=== PATIENT | male | born 1980 | race Caucasian/White ===

== ENCOUNTER 2017-01-22 06:33 | Observation (INO) ==
--- NOTE | 2017-01-22 07:13 | Emergency Department Note ---
Disposition Clinical Impression: Ventricular premature beats Chest pain Qualifiers: Chest pain type: other chest pain Qualified Code(s): R07.89 - Other chest pain Disposition: Admitted As Inpatient Condition: Fair Time of Disposition: 07:55 Arrhythmia/Palpitations HPI - General Chief Complaint: ED Arrhythmia/Palpitations Stated Complaint: heart racing Time Seen by Provider: 01/22/17 06:38 Source: patient, family Limitations: no limitations Nursing Notes Reviewed: Yes Vital Signs Reviewed: Yes - History of Present Illness HPI Narrative: 37-year-old male with a strong family history of breast factors include weight, hypertension, borderline diabetes he had some chest pain yesterday today he had what he described as palpitations. Patient is nonsmoker. Pt Subjective Complaint: "skipped beats", palpitations Onset (ago): Just [employer] Duration: intermittent Severity: moderate Context: occurred during rest, occurred during exertion Associated symptoms: Reports: chest pain Treatments prior to arrival: other (None) - Related Data Home Medications Medication Instructions Recorded Confirmed Lisinopril/Hydrochlorothiazide 1 tab PO DAILY 01/22/17 01/22/17 [Zestoretic 10-12.5 mg Tablet] Loratadine [Allergy Relief] 10 mg PO DAILY 01/22/17 01/22/17 Allergies Allergy/AdvReac Type Severity Reaction Status Date / Time No Known Allergies Allergy Verified 01/22/17 06:34 Constitutional: Denies: fever, chills, weakness, weight change Eyes: Denies: eye pain, eye discharge, vision change ENT ED: Denies: ear pain, throat pain, dental pain, hearing loss, epistaxis, congestion, dysphagia Cardiovascular: Reports: chest pain, palpitations. Denies: dyspnea on exertion , edema, syncope Respiratory: Denies: cough, dyspnea, wheezes, hemoptysis, stridor Gastrointestinal: Denies: abdominal pain, nausea, vomiting, diarrhea, constipation, hematemesis, melena, hematochezia Genitourinary: Denies: urgency, dysuria, frequency, hematuria Musculoskeletal: Denies: back pain, neck pain, arthralgia, myalgia Integumentary: Denies: rash, abrasion, lesions Neurological: Denies: headache, weakness, numbness, paresthesias, confusion, abnormal gait, vertigo Psychiatric: Denies: anxiety, depression, suicidal thoughts, homicidal thoughts , auditory hallucinations, visual hallucinations Endocrine: Denies: fatigue Hematological/Lymphatic: Denies: easy bleeding, easy bruising Allergic/Immunologic: Denies: facial swelling, urticaria Past Medical History - Past Medical History Medical history: Reports: hypertension Psychiatric history: Reports: no psych history - Social History Smoking Status: Never smoker Smokeless Tobacco Status: No Alcohol use: Reports: rarely Drug use: Reports: none Physical Exam - General Limitations: no limitations General appearance: alert, in no apparent distress - Head Head exam: atraumatic, normocephalic, normal inspection - Eye Eye exam: Present: normal appearance, PERRL, EOMI - ENT ENT exam: normal exam, normal oropharynx, mucous membranes moist - Neck Neck exam: Present: normal inspection, full ROM, trachea midline - Chest Chest inspection: Present: normal inspection, symmetric chest wall rise - Respiratory Respiratory exam: Present: normal lung sounds bilaterally - Cardiovascular Cardiovascular exam: Present: regular rate, normal rhythm, normal heart sounds - Abdominal Exam Abdominal exam: Present: soft, Non-Tender. Absent: tenderness, distention, guarding, rebound, rigidity - Extremities Exam Extremities exam: Present: normal inspection, full ROM. Absent: tenderness, pedal edema - Expanded Lower Extremity Exam Neurovascular/Tendon exam: Absent: motor deficit, sensory deficit, tendon deficit Gait: observed and normal - Back Exam Back exam: Present: normal inspection, full ROM. Absent: tenderness - Neurological Exam Neurological exam: Present: alert, oriented X3 - Psychiatric Psychiatric exam: Present: normal affect, normal mood - Skin Skin exam: Present: warm, dry, intact, normal color Course - Reevaluation(s) Reevaluation #1: 37-year-old multiple risk factors comes in complaining of chest pain and trigeminy on his EKG. Initial bone and is negative. In light of his risk factors and complaints with EKG findings were going to admit him to rule out ME. Time: 07:54 - Consultations Consultation #1: Discussed with , admit. Time: 07:54 Vital Signs Temperature 97.7 F 01/22/17 06:34 Pulse Rate 87 01/22/17 06:34 Respiratory Rate 20 01/22/17 06:34 Blood Pressure 150/86 01/22/17 06:34 O2 Sat by Pulse Oximetry 97 01/22/17 06:34 Temperature 97.8 F 01/22/17 15:41 Pulse Rate 73 03/18/17 15:41 Respiratory Rate 16 01/22/17 15:41 Blood Pressure 125/64 01/22/17 15:41 O2 Sat by Pulse Oximetry 90 L 01/22/17 15:41 Oxygen Delivery Oxygen Delivery Room Air Arrhythmia/Palpitations - Lab Data Lab results reviewed: Yes I reviewed the patient's lab results. Result diagrams: 01/22/17 07:00 01/22/17 07:00 Lab Results 01/22/17 01/22/17 01/22/17 Range/Units 07:00 07:00 07:00 WBC 11.2 H (4.3-11.1) K/mcL RBC 5.49 (4.19-5.50) M/mcL Hgb 14.9 (12.9-16.9) g/dL Hct 45.9 (37.5-50.1) % MCV 83.6 (83.0-100.0) fL MCH 27.1 L (28.0-33.3) pg MCHC 32.5 (31.6-35.5) g/dL RDW 14.8 H (11.5-14.5) % Plt Count 326 (140-400) K/mcL MPV 8.7 L (9.4-12.4) fL Immature Gran % 0.4 (0-4) % Seg Neutrophils % 62.3 % Lymphocytes % 25.1 % Monocytes % 6.3 % Eosinophils % 5.5 % Basophils % 0.4 % Neutrophils # 7.0 (1.6-8.9) K/mcL Lymphocytes # 2.8 (0.6-4.6) K/mcL Monocytes # 0.7 (0.0-1.3) K/mcL Eosinophils # 0.6 (0.0-0.6) K/mcL Basophils # 0.1 (0.0-0.2) K/mcL Sodium 139 (136-145) mEq/L Potassium 4.2 (3.5-4.5) mEq/L Chloride 104 (98-109) mEq/L Carbon Dioxide 25 (19-29) mEq/L BUN 11 (8-26) mg/dL Creatinine 0.82 (0.72-1.25) mg/dL Est GFR ( Amer) > 60 (> 60) Est GFR (Non-Af Amer) > 60 (> 60) BUN/Creatinine Ratio 13 (6-26) Glucose 133 H (70-99) mg/dL Est Mean Plasma Glucose mg/dl Hemoglobin A1c ( - 5.6) % Calculated Osmolality 289 (280-300) Calcium 8.8 (8.6-10.8) mg/dL Phosphorus 3.0 (2.3-4.7) mg/dL Magnesium 1.7 (1.6-2.6) mg/dL Troponin I 0.00 (0-0.03) ng/mL TSH 2.440 (0.350-4.840) mcIU/mL 01/22/17 Range/Units 07:00 WBC (4.3-11.1) K/mcL RBC (4.19-5.50) M/mcL Hgb (12.9-16.9) g/dL Hct (37.5-50.1) % MCV (83.0-100.0) fL MCH (28.0-33.3) pg MCHC (31.6-35.5) g/dL RDW (11.5-14.5) % Plt Count (140-400) K/mcL MPV (9.4-12.4) fL Immature Gran % (0-4) % Seg Neutrophils % % Lymphocytes % % Monocytes % % Eosinophils % % Basophils % % Neutrophils # (1.6-8.9) K/mcL Lymphocytes # (0.6-4.6) K/mcL Monocytes # (0.0-1.3) K/mcL Eosinophils # (0.0-0.6) K/mcL Basophils # (0.0-0.2) K/mcL Sodium (136-145) mEq/L Potassium (3.5-4.5) mEq/L Chloride (98-109) mEq/L Carbon Dioxide (19-29) mEq/L BUN (8-26) mg/dL Creatinine (0.72-1.25) mg/dL Est GFR ( Amer) (> 60) Est GFR (Non-Af Amer) (> 60) BUN/Creatinine Ratio (6-26) Glucose (70-99) mg/dL Est Mean Plasma Glucose 126 mg/dl Hemoglobin A1c 6.0 H ( - 5.6) % Calculated Osmolality (280-300) Calcium (8.6-10.8) mg/dL Phosphorus (2.3-4.7) mg/dL Magnesium (1.6-2.6) mg/dL Troponin I (0-0.03) ng/mL TSH (0.350-4.840) mcIU/mL - Radiology Data Radiology results reviewed: Yes I reviewed the patient's radiology results. Chest X-Ray 01/22/17 06:38 IMPRESSION: Negative portable chest. D/ / Steven Urbano MD / Steven Urbano MD Interpreting Provider: Steven Urbano MD - EKG Data EKG attestation: Yes I reviewed and interpreted this EKG. Rhythm: PVC's Ronan/QRS: IVCD Interpretation: no acute changes
[2017-01-22 07:18] LABS: Basophils # 0.1 K/mcL (0.0-0.2); Basophils % 0.4 %; Eosinophils # 0.6 K/mcL (0.0-0.6); Eosinophils % 5.5 %; Hematocrit 45.9 % (37.5-50.1); Hemoglobin 14.9 g/dL (12.9-16.9); Immature Granulocytes % 0.4 % (0-4); Lymphocytes # 2.8 K/mcL (0.6-4.6); Lymphocytes % 25.1 %; Mean Corpuscular HGB Conc 32.5 g/dL (31.6-35.5); Mean Corpuscular Hemoglobin 27.1 pg (28.0-33.3); Mean Corpuscular Volume 83.6 fL (83.0-100.0); Mean Platelet Volume 8.7 fL (9.4-12.4); Monocytes # 0.7 K/mcL (0.0-1.3); Monocytes % 6.3 %; Platelet Count 326 K/mcL (140-400); Red Blood Count 5.49 M/mcL (4.19-5.50); Red Cell Distribution Width 14.8 % (11.5-14.5); Segmented Neutrophils % 62.3 %
[2017-01-22 07:25] LABS: BUN/Creatinine Ratio 13 (6-26); Blood Urea Nitrogen 11 mg/dL (8-26); Calcium 8.8 mg/dL (8.6-10.8); Carbon Dioxide 25 mEq/L (19-29); Chloride 104 mEq/L (98-109); Glucose 133 mg/dL (70-99); Osmolality,Calculated 289 (280-300); Potassium 4.2 mEq/L (3.5-4.5); Sodium 139 mEq/L (136-145); eGFR For African Americans > 60 (> 60); eGFR For Non-African Americans > 60 (> 60)
[2017-01-22] MEDS ORDERED: Aspirin 81 MG TAB.CHEW PO STA (07:49)
[2017-01-22 08:08] LABS: Magnesium 1.7 mg/dL (1.6-2.6)
--- NOTE | 2017-01-22 09:16 | Internal Med History&Physical ---
Date of Encounter: 01/22/17 Time of Encounter: 09:00 Assessment and Plan (1) Chest pain Current visit: Yes Status: Acute Chest pain with risk factors for coronary artery disease. Will observe in the hospital overnight. Trend troponins. Monitor with telemetry. Plan for cardiac stress test tomorrow. Qualifiers: Chest pain type: other chest pain Qualified Code(s): R07.89 - Other chest pain; R07.8 - Other chest pain (2) Ventricular premature beats Current visit: Yes Status: Acute Patient having palpitations with PVCs noted on EKG. Will get 2-D echocardiogram. Monitor with telemetry. Check magnesium, phosphorus and other vitamins. TSH level was normal. (3) Essential hypertension Current visit: Yes Status: Chronic Monitor blood pressure. Resume lisinopril. Internal Medicine - H&P: HPI Chief complaint: Chest pain Admitted From: Emergency Dept Plans for Post Hospital Care: Home History of present illness: Mr. Vail is a 37 year old male with history of essential hypertension came to the ER with complaints of palpitations. His symptoms have been going on for about 2 days now. He had an episode of upper respiratory tract infection last month. Otherwise he has been pretty healthy. He does take lisinopril for hypertension. He was also noted to be borderline diabetic at his most recent doctor visit. He denies any fever or chills or night sweats. He may drink a cup of coffee and couple soda every day but does not take any energy drinks. He also reports some intermittent chest pain that comes and goes He also reports a mild intermittent chest pain associated with it that does not radiate anywhere. No associated shortness of breath. Past Med Surg Social Fam HX - Past Medical History Attestation: Yes The following information was validated with the patient. Medical history: hypertension Psychiatric history: no psych history - Social History Smoking Status: Never smoker Smokeless Tobacco Status: No Alcohol use: rarely Drug use: none - Additional Family History Additional family history: History of diabetes and hypertension in family Internal Medicine - H&P: Meds Allergies No Known Allergies Allergy (Verified 01/22/17 06:34) All Systems PM: A 10-system review of systems was performed and is negative for pertinent findings except as documented above in the HPI. - Constitutional Constitutional: no chills, no fever(s), no night sweats - EENT Eyes: no change in vision, no discharge, no pain, no photophobia Ears: no ear discharge, no ear pain, no tinnitus Nose, mouth and throat: no dysphagia, no nasal discharge, no neck pain, no sore throat - Cardiovascular Cardiovascular ROS IM: palpitations, no chest pain, no diaphoresis, no dyspnea, no lightheadedness, no syncope - Respiratory Respiratory: no cough, no dyspnea, no wheezing, no excessive phlegm production - Gastrointestinal Gastrointestinal: no abdominal pain, no diarrhea, no hematemesis, no hematochezia, no melena, no nausea, no vomiting - Musculoskeletal Musculoskeletal ROS IM: no numbness, no tingling - Integumentary Integumentary IM: no rash, no unusual bruising - Neurological Neurological ROS: no confusion, no convulsions, no focal weakness, no numbness, no tingling, no tremor(s) - Hematologic/Lymphatic Hematologic/Lymphatic: no easy bruising - Constitutional Vitals: Temp Pulse Resp BP Pulse Ox 97.7 F 85 18 133/78 97 01/22/17 06:34 01/22/17 08:04 01/22/17 08:04 01/22/17 08:04 01/22/17 08:04 General appearance: Present: cooperative, A&O X 3, answers questions appropriately - Eye Eye exam: Present: EOMI, PERRL, conjuntiva pink, sclera anicteric - Neck Neck exam general surgery: Present: supple, trachea midline. Absent: lymphadenopathy - Respiratory Respiratory exam: Present: CTAB. Absent: accessory muscle use, rales, rhonchi, wheezes - Cardiovascular Cardiovascular exam: Present: RRR, +S1, +S2, tachycardia. Absent: diastolic murmur, gallop, rubs, systolic murmur - GI/Abdominal GI/Abdominal exam: Present: normal bowel sounds, soft, no peritoneal signs. Absent: distended, tenderness - Extremities Exam Extremities exam: Present: warm, radial pulses palpable and symetrical. Absent : calf tenderness, cyanotic, pedal edema - Neurological Exam Neurological exam: Present: alert, CN II-XII intact, oriented X3, no focal deficits, strengths equal and symetr throughout. Absent: facial droop, speech deficit - Skin Skin exam: Present: dry, intact Internal Med - H&P Results - Labs CBC & Chem 7: 01/22/17 07:00 01/22/17 07:00 - EKG Data EKG shows normal: sinus rhythm - EKG Data EKG comments: 01/22/17 09:17 With PVCs - Attending Attestation This document has been at least partially created by [employer] recognition technology by Dr. Linares. Errors in grammar, wording or other phrases may exist. If errors are found after the documentation is signed, they will be addressed individually in the addendum section of this document when appropriate.
[2017-01-22] MEDS ORDERED: Perflutren Lipid Microsphere 1.3 ML in 0.9 % Sodium Chloride 8.7 ML IVP ONE (19:22)
[2017-01-22] MEDS ORDERED: Perflutren Lipid Microsphere 2 ML VIAL ONE (19:24)
[2017-01-23] MEDS ORDERED: Regadenoson 0.4 MG/5 ML SYRINGE IVP ONE (06:06)
[2017-01-23 06:09] LABS: Basophils # 0.1 K/mcL (0.0-0.2); Basophils % 0.4 %; Eosinophils # 0.6 K/mcL (0.0-0.6); Eosinophils % 4.8 %; Hematocrit 41.2 % (37.5-50.1); Hemoglobin 13.4 g/dL (12.9-16.9); Immature Granulocytes % 0.3 % (0-4); Lymphocytes # 3.3 K/mcL (0.6-4.6); Lymphocytes % 28.4 %; Mean Corpuscular HGB Conc 32.5 g/dL (31.6-35.5); Mean Corpuscular Hemoglobin 27.6 pg (28.0-33.3); Mean Corpuscular Volume 84.9 fL (83.0-100.0); Mean Platelet Volume 9.2 fL (9.4-12.4); Monocytes # 0.7 K/mcL (0.0-1.3); Monocytes % 6.3 %; Neutrophils # 6.9 K/mcL (1.6-8.9); Platelet Count 289 K/mcL (140-400); Red Blood Count 4.85 M/mcL (4.19-5.50); Segmented Neutrophils % 59.8 %
[2017-01-23 06:20] LABS: BUN/Creatinine Ratio 14 (6-26); Blood Urea Nitrogen 11 mg/dL (8-26); Calcium 8.4 mg/dL (8.6-10.8); Carbon Dioxide 25 mEq/L (19-29); Chloride 104 mEq/L (98-109); Glucose 113 mg/dL (70-99); Osmolality,Calculated 288 (280-300); Potassium 4.1 mEq/L (3.5-4.5); Sodium 139 mEq/L (136-145); eGFR For African Americans > 60 (> 60); eGFR For Non-African Americans > 60 (> 60)
[2017-01-23 06:22] LABS: Chol/HDL Ratio 4.8 (0-4.9)
--- NOTE | 2017-01-23 10:52 | ECHO - Doppler Report ---
Echo with Imaging Enhancement Agent Name: Edwin Vail Date of Study: 01/22/2017 Date: 1980 Ht: 71.0 in Medical Record#: [id number] Age: 37 Wt: 385.0 lb Gender: Male BSA: 2.79 Order #: [id number] Location: [facility] Room #: 3B Reading Physician: Michelle Lyles DO Accounts Receivable Specialist: PETER VanT, [facility] Ordering Physician: Chelsea Linares MD Primary Physician: Zev Noguera DO Indications: Chest pain, Palpitations Impressions: Technically challenging study with suboptimal windows. LVEF 60%. Mild concentric left ventricular hypertrophy. Unable to evaluate segmental wall motion due to technical quality. RV is not well evaluated. Valves were not well evaluated by Doppler. Unable to estimate RVSP. Left Ventricular Wall Motion: Rest Echo Findings All wall segments showed normal motion. Findings: Study Quality * Technically sub-optimal due to body habitus. Left Ventricle * LVEF 60%. * Mild concentric left ventricular hypertrophy. * Indeterminate diastolic function. * Unable to evaluate segmental wall motion due to technical quality. * Definity echo contrast was used. Aortic Valve * No aortic regurgitation. * Aortic valve not well visualized. * Suboptimal Doppler evaluation. Mitral Valve * No mitral regurgitation. * Suboptimal Doppler evaluation. * Mitral valve not well visualized. ECG Findings * Normal sinus rhythm. Tricuspid Valve * Tricuspid valve not well visualized. * No tricuspid regurgitation although may be underestimated. Pulmonic Valve * Pulmonic valve is not well visualized. * No pulmonic stenosis. * No pulmonic regurgitation. Pulmonary Artery * Pulmonary artery not well visualized. Right Ventricle * RV not well evaluated. Left Atrium * Left atrium is not well visualized. Right Atrium * Right atrium is not well visualized. Interatrial Septum * Interatrial septum not well evaluated. IVC * The IVC is not well evaluated. Pericardium * There is no pericardial effusion present. Aorta * Not well visualized. History Hypertension Contrast: Definity 1.3 ml in 8.7 ml of saline 2 ml. Measurements: BP: 123/ 67 2D Normal Values IVSd: 1.30 cm 0.6 - 1.0 cm LVIDd: 4.30 cm 3.7 - 5.6 cm LVPWd: 1.30 cm 0.6 - 1.1 cm LVIDs: 3.00 cm 1.5 - 3.6 cm AO: 3.10 cm < 4.0 cm LA: 4.40 cm 2.0 - 4.0cm %FS: 30.20 cm >25 % LA volume: 40 Mitral Valve Dec Time:250.00 msec Peak E:.86 m/sec Peak A:.50 m/sec E/A Ratio:1.7 Peak E' Lat Sean:14.5 cm/s Peak E' Med Sean:7.66 cm/s E/E' Lat Ratio:6 E/E' Med Ratio:11.3 Updated by Michelle Lyles on 01/23/2017 10:45:01 AM electronically signed on 01/23/2017 10:46:32 AM with status of Final Wall Motion Hanley: 1=Normal, 2=Hypokinesis, 3=Akinesis, 4=Dyskinesis, 5=Aneurysmal, 6=Hyperkinetic, X=Not Visualized (Blank)=Missing
--- NOTE | 2017-01-23 11:52 | Internal Med Progress Note ---
Date of Encounter: 01/23/17 Time of Encounter: 11:52 - Assessment and plan (1) Chest pain Current Visit: Yes Status: Acute Assessment and plan: EKG with PVCs Trops negative ECHO noted for LVEF WNL, no WMA. Valvular funtion not well assessed due to technicality of study Awaiting second part of stress test tmrw Continue to monitor Qualifiers: Chest pain type: other chest pain Qualified Code(s): R07.89 - Other chest pain; R07.8 - Other chest pain (2) Pre-diabetes Current Visit: Yes Status: Acute Assessment and plan: A1C 6.0 Counselled on lifestyle modification (3) NURIA (obstructive sleep apnea) Current Visit: Yes Status: Suspected Assessment and plan: Suspected, based on history CPAP at night for now Educated to pursue sleep study as out-patient (4) Ventricular premature beats Current Visit: Yes Status: Acute Assessment and plan: NOn-specific, benign May be due to NURIA (5) Essential hypertension Current Visit: Yes Status: Chronic Assessment and plan: Resume home meds (6) Morbid obesity Current Visit: Yes Status: Acute Assessment and plan: Patient will benefit from Bariatric surgery, follow up with PCP Lifestyle changes encouraged Qualifiers: Obesity type: unspecified obesity type Qualified Code(s): E66.01 - Morbid ( severe) obesity due to excess calories (7) Leukocytosis Current Visit: Yes Status: Acute Assessment and plan: Possibly from dehydration Encourage liberal fluid intake Will give Z-pack for resp symptoms Qualifiers: Leukocytosis type: unspecified Qualified Code(s): D72.829 - Elevated white blood cell count, unspecified - Subjective Interval history: 37 Y/O M on admission for wor up for chest pain, URI and PVCs He is seen at bedside with spouse On further questioning reports NURIA symptoms He has never had sleep studies done He denies new complains - Constitutional Vitals: Temp Pulse Resp BP Pulse Ox 98.1 F 92 16 145/76 95 01/23/17 09:11 01/23/17 09:11 01/23/17 09:11 01/23/17 09:11 01/23/17 09:11 General appearance: Present: cooperative, A&O X 3, morbidly obese, pleasant, no acute distress, answers questions appropriately - Head Head exam: Present: atraumatic - Eye Eye exam: Present: PERRL, conjuntiva pink, sclera anicteric Pupils: Present: PERRL - Neck Neck exam general surgery: Present: supple, trachea midline. Absent: lymphadenopathy - Respiratory Respiratory exam: Present: CTAB. Absent: accessory muscle use, rales, rhonchi, wheezes - Cardiovascular Cardiovascular exam: Present: RRR, +S1, +S2. Absent: diastolic murmur, gallop, rubs, systolic murmur - GI/Abdominal GI/Abdominal exam: Present: normal bowel sounds, soft, no peritoneal signs. Absent: distended, tenderness - Extremities Exam Extremities exam: Present: warm, radial pulses palpable and symetrical. Absent : calf tenderness, cyanotic, pedal edema - Neurological Exam Neurological exam: Present: CN II-XII intact, oriented X3, no focal deficits. Absent: pronater drift, facial droop, speech deficit - Skin Skin exam: Present: dry, intact Internal Medicine: Result - Labs CBC & Chem 7: 01/23/17 04:28 01/23/17 04:28 Labs: Short CBC 01/23/17 Range/Units 04:28 WBC 11.6 H (4.3-11.1) K/mcL Hgb 13.4 D (12.9-16.9) g/dL Hct 41.2 (37.5-50.1) % Plt Count 289 (140-400) K/mcL Neutrophils # 6.9 (1.6-8.9) K/mcL BMP 01/23/17 04:28 Sodium 139 Potassium 4.1 Chloride 104 Carbon Dioxide 25 BUN 11 Creatinine 0.80 Glucose 113 H Calcium 8.4 L Cardiac Enzymes 01/22/17 01/22/17 Range/Units 13:49 20:02 Troponin I 0.00 0.00 (0-0.03) ng/mL Consult Discharge Plan - Plan Referrals: Zev Noguera DO [Primary Care Provider] -
--- NOTE | 2017-01-23 12:53 | Electrocardiograph Report ---
[place] [id number] Test Date: 2017-01-22 Pat Name: Edwin Vail Department: 104 Room: 3B38 Gender: M Service Desk Lead: : 1980 Requested By: Oleksandr Taylor Order Number: [id number] Reading MD: Michelle Lyles Measurements Intervals [place] Rate: 103 P: 48 GA: 154 QRS: -6 QRSD: 114 T: 30 QT: 343 QTc: 403 Interpretive Statements SINUS TACHYCARDIA WITH FREQUENT VENTRICULAR PREMATURE COMPLEXES INTRAVENTRICULAR CONDUCTION DELAY ABNORMAL RHYTHM ECG Electronically Signed On 01-23-2017 12:51:55 EDT by Michelle Lyles
[2017-01-23] MEDS: Azithromycin 250 MG TABLET PO SCH (15:34)
[2017-01-24 06:53] VITALS: BP 122/76
--- NOTE | 2017-01-24 08:30 | Nuclear Medicine Stress Report ---
Exercise Nuclear Stress 2 day Name: Edwin Vail Date of Study: 01/23/2017 Date: 1980 Ht: 71.0 in Medical Record#: [id number] Age: 37 Wt: 383.0 lb Gender: Male Order #: [id number] Location: [facility] IP Room: [facility] Supervising Provider: Heather Musa CNP Reading Physician: Michelle Lyles DO Ordering Physician: Dariusz Wooten MD Primary Care Physician: Zev Noguera DO Stress Technologist: Karime Juarez, CAR[place],[facility] Business Objects: Jt Mcdonald Indications: Palpitations Impression: Perfusion imaging was negative for ischemia or infarct. Exercise ECG was negative for ischemia. Exercise capacity was fair. Normal hemodynamic response. Frequent PVCs, isolated and in bigeminy, trigeminy, during recovery. Patient had no chest pain with stress. Gated EF = 62%. History: Hypertension Stress Test Summary: Stress Test Type: Treadmill Protocol: Parrish Baseline Information: Initial Heart Rate: 100 Blood Pressure: 128/62 Stress Information: Maximum Heart Rate: 180 Percent Maximum Heart Rate Achieved: 99 METS Reached: 7 Nuclear Summary: SPECT myocardial perfusion imaging using Tc99m Sestamibi given intravenously was performed at rest and following cardiac stress testing. The resting images were obtained following initial dose of 34.5 mCi. Following stress an additional dose of 35.5 mCi was given at peak exercise or 30 seconds post regadenoson infusion. Medication Given: Time Medication Dose Units Route Findings: Stress Note * Resting ECG demonstrated normal sinus rhythm with borderline left axis and poor R wave progression. * Exercise ECG is negative for ischemia. * A single PVC is seen during beginning of exercise. No stress dysrhythmia. During recovery are seen frequent PVCs, isolated and in bigeminy and trigeminy and one couplet. * Patient had no chest pain during stress. * The exercise capacity was fair. Hemodynamic responses * Normal hemodynamic responses to exercise. Study Quality * Technically challenging due to body habitus and rejected beats. Left Ventricle * The left ventricle is not dilated. TID * No evidence of transient ischemic dilatation. Lung Uptake * There is no evidence of increase lung uptake. NORMALS * Normal wall motion. Gated EF % * Gated EF = 62%. PERFUSION * There is homogeneous perfusion uptake on rest and stress studies. No perfusion abnormalities consistent with infarct or ischemia. Updated by Michelle Lyles on 01/24/2017 8:24:04 AM electronically signed on 01/24/2017 8:25:42 AM with status of Final
[2017-01-24 08:35] LABS: Basophils % 0.4 %; Eosinophils # 0.4 K/mcL (0.0-0.6); Eosinophils % 3.7 %; Hematocrit 42.3 % (37.5-50.1); Hemoglobin 13.6 g/dL (12.9-16.9); Immature Granulocytes % 0.4 % (0-4); Lymphocytes # 2.8 K/mcL (0.6-4.6); Mean Corpuscular HGB Conc 32.2 g/dL (31.6-35.5); Mean Corpuscular Hemoglobin 27.1 pg (28.0-33.3); Mean Corpuscular Volume 84.3 fL (83.0-100.0); Mean Platelet Volume 8.9 fL (9.4-12.4); Monocytes # 0.7 K/mcL (0.0-1.3); Neutrophils # 7.3 K/mcL (1.6-8.9); Platelet Count 297 K/mcL (140-400); Red Blood Count 5.02 M/mcL (4.19-5.50); Segmented Neutrophils % 64.5 %
[2017-01-24] MEDS ORDERED: Loratadine 10 MG TABLET PO SCH (09:00)
--- NOTE | 2017-01-24 09:38 | Discharge Summary ---
Date of Encounter: 01/24/17 Time of Encounter: 09:00 - Discharge Diagnosis (1) Chest pain Priority: Primary Status: Resolved Qualifiers: Chest pain type: other chest pain Qualified Code(s): R07.89 - Other chest pain; R07.8 - Other chest pain (2) Pre-diabetes Priority: Secondary Status: Chronic (3) NURIA (obstructive sleep apnea) Priority: Secondary Status: Suspected (4) Ventricular premature beats Priority: Primary Status: Acute (5) Essential hypertension Priority: Secondary Status: Chronic (6) Morbid obesity Priority: Secondary Status: Chronic Qualifiers: Obesity type: unspecified obesity type Qualified Code(s): E66.01 - Morbid ( severe) obesity due to excess calories (7) Leukocytosis Priority: Secondary Status: Acute Qualifiers: Leukocytosis type: unspecified Qualified Code(s): D72.829 - Elevated white blood cell count, unspecified - Discharge Medications Prescriptions: Doxycycline 100 mg PO BID #8 capsule Home Medications: Lisinopril/Hydrochlorothiazide [Zestoretic 10-12.5 mg Tablet] 1 tab PO DAILY [History] Loratadine [Allergy Relief] 10 mg PO DAILY 01/22/17 [History] Doxycycline 100 mg PO BID #8 capsule 01/24/17 [Rx] Allergies/Adverse Reactions: Allergies No Known Allergies Allergy (Verified 01/22/17 06:34) Procedures/tests Complete & Pending: Procedures Performed prior 72 hours Category Date Time Status NM liban perf SPECT multi [NM] Routine Exams 01/22/17 09:26 Taken EV echocardiogram w enhance Routine Y 01/22/17 09:25 Completed SP exercise nuclear stress Routine Y 01/23/17 09:26 Completed Date of admission: 01/22/17 08:46 Primary care physician: Zev Noguera DO Discharging clinician: Dariusz Wooten Anticipated date of discharge: 01/24/17 - Patient Status Disposition: Home, Self-Care Condition: Good Functional capacity at discharge: independent ambulation Overall status at discharge: patient is back to baseline - Ambulatory Orders Ambulatory Orders: ECG holter monitor [ECG] Time Frame: 1 Day, Facility: [facility], Location: Cardiopulmonary [facility] - Discharge Instructions Instructions: Doxycycline (By mouth), Chest Pain (GEN), Holter Monitoring (DC) , Premature Ventricular Contractions (GEN) Follow Up With: Zev Noguera DO [Primary Care Provider] - Additional Instructions: FOllow up with PCP for Sleep study and management of sleep apnea To d/c home with 24 hr Holter Monitor and f/u with cardio for results - Diet and Activity Activity: resume usual activities as tolerated Diet: low fat, low cholesterol, low salt diet Interval History: See below Hospital course: Mr. Vail is a 37 year old male with Morbid Obesity, HTN he presented with palpitations and chest discomfort unrelated to physical activity and self-resolving Further history suggests symptoms and signs of sleep apnea. He denied excess caffeine intake and reports the palpitations does not affect his daily activity and he does not have dizziness or shortness of breath Work up revealed , PVC s on EKG, Troponin negative X3, Stress test was negative for ischemia but demonstrated PVCs Patient also had URI symptoms as well as slight leukocytosis, CXR did not show pneumonia and chest exam was unremarkable He is educated about sleep apnea and need for sleep study and CPAP in the future I suspect his PVCs may be due to his sleep apnea which may be severe, based on his body habitus, BMI of 54. He is discharged with a HOlter, follow up with Cardiology I have extensively educated him on lifestyle modification and need for sleep study and evaluation for bariatric surgery. he also has Pre-DM with A1C 6.0 He and his spouse verbalize understanding He is discharged with doxycycline po fr bronchitis Follow up with PCP - Time Spent with Patient Total time spent providing and/or coordinating discharge services: Less than 30 minutes - Constitutional Vitals: Temp Pulse Resp BP Pulse Ox 97.4 F L 86 17 122/76 95 01/24/17 06:50 01/24/17 06:50 01/24/17 06:50 01/24/17 06:50 01/24/17 06:50 General appearance: Present: cooperative, A&O X 3, morbidly obese, pleasant, no acute distress, answers questions appropriately - Head Head exam: Present: atraumatic, normocephalic - Eye Eye exam: Present: PERRL, conjuntiva pink, sclera anicteric Pupils: Present: PERRL - Neck Neck exam general surgery: Present: supple, trachea midline. Absent: lymphadenopathy - Respiratory Respiratory exam: Present: CTAB. Absent: accessory muscle use, rales, rhonchi, wheezes - Cardiovascular Cardiovascular exam: Present: RRR, +S1, +S2. Absent: diastolic murmur, gallop, rubs, systolic murmur - GI/Abdominal GI/Abdominal exam: Present: normal bowel sounds, soft, no peritoneal signs. Absent: distended, tenderness - Extremities Exam Extremities exam: Present: warm, radial pulses palpable and symetrical. Absent : calf tenderness, cyanotic, pedal edema - Neurological Exam Neurological exam: Present: CN II-XII intact, oriented X3, no focal deficits. Absent: pronater drift, facial droop, speech deficit - Skin Skin exam: Present: dry, intact
[2017-01-24] MEDS: Azithromycin 250 MG TABLET PO SCH (10:11)
== END 2017-01-24 13:45 | disposition home or self-care (01) ==
LOC: 3BNU 06:33 → EMEROO 06:33 → SUATTDRO 08:46 → 3BNU 09:21
PROVIDERS: ADMIT Internal Medicine; ATTEND Internal Medicine